=== PATIENT | female | born 1995 | race Two or more races ===

== ENCOUNTER 2019-09-09 13:24 | Emergency (ER) | payer OTHER, MEDICAID ==
[~2019-09-09] VITALS: Ht 177.8 cm; Wt 63.5 kg
[2019-09-09 13:35] VITALS: BP 131/90
== END 2019-09-09 13:45 | disposition home or self-care (01) ==
LOC: ER 13:24 → EDBD 13:24 → ER 13:45
DX: O9A.213 Injury, poisoning and certain other consequences of external causes complicating pregnancy, third trimester (principal); M54.9 Dorsalgia, unspecified; R10.9 Unspecified abdominal pain; Z3A.39 39 weeks gestation of pregnancy; V48.5XXA Car driver injured in noncollision transport accident in traffic accident, initial encounter; Y93.89 Activity, other specified; Y99.8 Other external cause status; Y92.89 Other specified places as the place of occurrence of the external cause

== ENCOUNTER 2019-09-09 14:03 | Observation (INO) | payer OTHER, MEDICAID ==
[~2019-09-09] VITALS: Ht 157.5 cm; Wt 71.7 kg
[2019-09-09] MEDS ORDERED: LACTATED RINGER'S 1,000 ML IV ONE (14:45)
[2019-09-09] MEDS ORDERED: TERBUTALINE SULFATE 1 MG/ML 1ML VIAL SC ONE (15:04)
[2019-09-09] MEDS ORDERED: TERBUTALINE SULFATE 1 MG/ML 1ML VIAL SC SCH (15:15)
== END 2019-09-09 16:10 | disposition home or self-care (01) | DRG 833 ==
LOC: LDRP 14:03
PROVIDERS: ADMIT Obstetrics & Gynecology; ATTEND Obstetrics & Gynecology
DX: O9A.219 Injury, poisoning and certain other consequences of external causes complicating pregnancy, unspecified trimester (principal); M54.9 Dorsalgia, unspecified; Z3A.00 Weeks of gestation of pregnancy not specified; V89.2XXA Person injured in unspecified motor-vehicle accident, traffic, initial encounter; Y93.89 Activity, other specified; Y92.410 Unspecified street and highway as the place of occurrence of the external cause
CPT/HCPCS: 59025; 76815; 81002; 96372; G0378; J3105; 96361; 96366

== ENCOUNTER → 2024-11-26 | Outpatient (CLI) | payer OTHER ==
[2024-11-27 08:07] LABS: Mumps IgG Antibody <9.0 AU/mL (Immune >10.9)
[2024-11-27 09:07] LABS: Rubeola IgG Antibody <13.5 AU/mL (Immune >16.4); Varicella Zoster IgG Antibody Reactive (Non Reactive)
== END | disposition home or self-care (01) ==
LOC: LAB 08:44
PROVIDERS: ATTEND Nurse Practitioner
DX: Z01.84 Encounter for antibody response examination (principal)
CPT/HCPCS: 36415; 86706; 86735; 86762; 86765; 86787